=== PATIENT | female | born 1990 | race American Indian/Alaskan Native ===

== ENCOUNTER 2017-04-24 18:57 | Emergency (ER) | payer SELFPAY ==
[2017-04-24 20:03] LABS: Hematocrit 36.3 % (30.3-42.9); Mean Corpuscular HGB Conc 33 % (30-34); Mean Corpuscular Hemoglobin 27 pg (28-32); Mean Corpuscular Volume 80 fl (79-97); Platelet Count 180 K/mm3 (140-440); Red Blood Count 4.52 M/mm3 (3.65-5.03); Red Cell Distribution Width 14.7 % (13.2-15.2); White Blood Count 7.8 K/mm3 (4.5-11.0)
[2017-04-24 20:11] LABS: INR 1.07 (0.87-1.13)
[2017-04-24 20:18] LABS: Anion Gap 17 mmol/L; Blood Urea Nitrogen 12 mg/dL (7-17); Calcium 9.2 mg/dL (8.4-10.2); Carbon Dioxide 27 mmol/L (22-30); Chloride 96.4 mmol/L (98-107); Glucose 132 mg/dL (65-100); Potassium 3.5 mmol/L (3.6-5.0); Sodium 137 mmol/L (137-145)
--- NOTE | 2017-04-24 20:30 | Cat Scan Report ---
FINAL REPORT EXAM: CT HEAD/BRAIN WO CON HISTORY: dizziness and fainting TECHNIQUE: Noncontrast serial axial images from skull base to vertex. PRIORS: None. FINDINGS: There is no mass effect or midline shift. There are no abnormal intra or extra-axial fluid collections. Cortical sulci and lateral ventricles are within normal limits for size and configuration. Basilar cisterns are patent. No acute intracranial hemorrhage is identified. Visualized paranasal sinuses and mastoid air cells are well aerated. No acute osseous abnormality is identified. IMPRESSION: 1. No abnormal mass or acute intracranial hemorrhage is identified.
[2017-04-24] MEDS ORDERED: MORPHINE IV ONE (21:25)
[2017-04-24] MEDS ORDERED: NACL 0.9% 1000 ML 1,000 ML IV ONE (21:25)
--- NOTE | 2017-04-24 21:28 | Emergency Department Report ---
HPI - General Chief Complaint: Headache Time Seen by Provider: 04/24/17 21:18 - HPI HPI: This is a 26-year-old -[place] female presents to the emergency department, dropped off by a friend to be seen, with complaint of a 5 day history of a generalized headache and 3 episodes of passing out over this time including once today. She denies any vision change, slurred speech or any other neurological deficits. She has been taking some Tylenol and Aleve for her headache without any relief. She denies any past medical history. She does not have a primary care physician. She denies any tobacco, illicit drug use or alcohol abuse. No recent travel or sick contacts at home. ED Past Medical Hx - Past Medical History Previous Medical History?: No Hx Hypertension: No Hx Congestive Heart Failure: No Hx Diabetes: No Hx Deep Vein Thrombosis: No Hx Renal Disease: No Hx Sickle Cell Disease: No Hx Seizures: No Hx Asthma: No Hx COPD: No Hx HIV: No - Surgical History Past Surgical History?: No - Social History Smoking Status: Never Smoker - Medications Home Medications: Home Medications Medication Instructions Recorded Confirmed Last Taken Type Nitrofurantoin [place]/M-Cryst 100 mg PO Q12HR #14 capsule 04/24/17 Unknown Rx [Macrobid CAP] traMADol [Ultram 50 MG tab] 50 mg PO Q6HR PRN #6 tablet 04/25/17 Unknown Rx ED Review of Systems ROS: Stated complaint: PASSED OUT X3 IN 4 DAYS, HEADACHE Other details as noted in HPI Comment: All other systems reviewed and negative Constitutional: denies: chills, fever Eyes: denies: eye pain, eye discharge, vision change ENT: denies: ear pain, throat pain Respiratory: denies: cough, shortness of breath, wheezing Cardiovascular: syncope. denies: chest pain, palpitations Gastrointestinal: denies: abdominal pain, nausea, diarrhea Genitourinary: denies: urgency, dysuria, discharge Musculoskeletal: denies: back pain, joint swelling, arthralgia Skin: denies: rash, lesions Neurological: headache. denies: numbness Physical Exam - Physical Exam Vital Signs: Vital Signs 04/24/17 04/24/17 19:25 21:08 Temperature 98.6 F Pulse Rate 100 H 92 H Respiratory 20 16 Rate Blood Pressure 96/68 Blood Pressure 109/71 [Right] O2 Sat by Pulse 99 100 Oximetry Physical Exam: GENERAL: The patient is well-developed well-nourished. HENT: Normocephalic. Atraumatic. Patient has moist mucous membranes. EYES: Extraocular motions are intact. Pupils equal reactive to light bilaterally. No nystagmus. NECK: Supple. Trachea is midline. CHEST/LUNGS: Clear to auscultation. There is no respiratory distress noted. HEART/CARDIOVASCULAR: Regular. There is no tachycardia. There is no gallop rub or murmur. ABDOMEN: Abdomen is soft, nontender. Patient has normal bowel sounds. There is no abdominal distention. SKIN: Skin is warm and dry. NEURO: The patient is awake, alert, and oriented. The patient is cooperative. The patient has no focal neurologic deficits. The patient has normal speech and gait. Cranial nerves II through XII grossly intact. MUSCULOSKELETAL: There is no tenderness or deformity. There is no limitation range of motion. There is no evidence of acute injury. ED Course Vital Signs 04/24/17 04/24/17 19:25 21:08 Temperature 98.6 F Pulse Rate 100 H 92 H Respiratory 20 16 Rate Blood Pressure 96/68 Blood Pressure 109/71 [Right] O2 Sat by Pulse 99 100 Oximetry ED Medical Decision Making - Lab Data Result diagrams: 04/24/17 19:48 04/24/17 19:52 - EKG Data -: EKG Interpreted by [facility] EKG shows normal: sinus rhythm, axis, intervals, QRS complexes, ST-T waves Rate: normal - EKG Data When compared to previous EKG there are: previous EKG unavailable Interpretation: normal EKG - Radiology Data Radiology results: report reviewed CT of the head does not show any acute intracranial process including no ischemia, shift, mass, bleeding or skull fracture. - Medical Decision Making 26-year-old female presents with a few days of a generalized headache and a few episodes of syncope. She does not have any focal, motor or sensory deficits in her cranial nerves are intact. Physical exam is unremarkable. EKG does not show any signs of ST elevation HI, ischemia or dysrhythmia. Labs are mostly unremarkable except for a urinary tract infection. She was given a dose of Rocephin. She was given some IV fluid resuscitation and a dose of pain medication. Upon reevaluation she says she is feeling greatly improved and asking for discharge home. She will be discharged home with a course of antibiotics for a urinary tract infection, referral for primary care and a referral for neurology. She has been encouraged to return to the emergency department with any further episodes of syncope or any return of her headache or any acute distress. - Differential Diagnosis tension headache, migraine, brain bleed, orthostatic hypotension, vasovagal Critical Care Time: No Critical care attestation.: If time is entered above; I have spent that time in minutes in the direct care of this critically ill patient, excluding procedure time. ED Disposition Clinical Impression: Headache Qualifiers: Headache type: unspecified Headache chronicity pattern: unspecified pattern Intractability: not intractable Qualified Code(s): R51 - Headache Syncope Qualifiers: Syncope type: unspecified Qualified Code(s): R55 - Syncope and collapse UTI (urinary tract infection) Qualifiers: Urinary tract infection type: acute cystitis Hematuria presence: without hematuria Qualified Code(s): N30.00 - Acute cystitis without hematuria Disposition: TO HOME OR SELFCARE Is pt being admited?: No Condition: Stable Instructions: Urinary Tract Infection in Women (ED), Syncope (ED), Acute Headache (ED) Additional Instructions: Please follow up with a primary care physician in the next few days. I have given you a referral for a local neurologist, Dr. Alejandra, in case she would like to follow up regarding your headaches. Return to the emergency Department with any worsening of your symptoms or any acute distress. Prescriptions: Nitrofurantoin Day/M-Cryst [Macrobid CAP] 100 mg PO Q12HR #14 capsule traMADol [Ultram 50 MG tab] 50 mg PO Q6HR PRN #6 tablet PRN Reason: Pain Referrals: PRIMARY MD LAWRENCE [Primary Care Provider] - 3-5 Days BRIANNE ALEJANDRA MD [Staff Physician] - 3-5 Days RACQUEL MEHTA MD [Staff Physician] - 3-5 Days [facility] [Outside] - 3-5 Days Forms: Work/School Release Form(ED) Time of Disposition: 23:53
[2017-04-24 21:51] LABS: Bacteria,Urine 2+ /HPF (Negative); Bilirubin,Urine NEG (Negative); Blood,Urine MOD (Negative); Ketones,Urine 20 mg/dL (Negative); Leukocyte Esterase,Urine LG (Negative); Mucus,Urine 1+ /HPF; Nitrite,Urine POS (Negative); Urobilinogen,Urine < 2.0 mg/dL (<2.0); WBC,Urine > 182.0 /HPF (0.0-6.0)
[2017-04-24] MEDS ORDERED: ROCEPHIN/NS 1 GM/50 ML 1 GM/50 ML BAG IV ONE (22:23)
[2017-04-24] MEDS ORDERED: TORADOL IV ONE (22:39)
[2017-04-24 23:55] VITALS: BP 101/60
== END 2017-04-25 00:06 | disposition home or self-care (01) ==
LOC: ED 18:57
DX: R52 Pain, unspecified (principal); N30.00 Acute cystitis without hematuria; Z91.013 Allergy to seafood
CPT/HCPCS: 36415; 70450; 80048; 81001; 81025; 84443; 84703; 85027; 85610; 85730; 93005; 93010; 96361; 96365; 96375; 99285; G0480; J0696; J1885; J2270; J7030; 80320

== ENCOUNTER 2018-01-07 22:43 | Emergency (ER) | payer SELFPAY ==
[2018-01-07 23:25] VITALS: BP 106/64
[2018-01-08 00:05] LABS: Basophils # (Auto) 0.1 K/mm3 (0.0-0.1); Basophils % (Auto) 0.6 % (0.0-1.8); Eosinophils # (Auto) 0.5 K/mm3 (0.0-0.4); Hematocrit 34.6 % (30.3-42.9); Hemoglobin 11.3 gm/dl (10.1-14.3); Lymphocytes # (Auto) 2.1 K/mm3 (1.2-5.4); Lymphocytes % (Auto) 22.9 % (13.4-35.0); Mean Corpuscular HGB Conc 33 % (30-34); Mean Corpuscular Hemoglobin 27 pg (28-32); Mean Corpuscular Volume 83 fl (79-97); Monocytes # (Auto) 0.6 K/mm3 (0.0-0.8); Monocytes % (Auto) 6.9 % (0.0-7.3); Platelet Count 174 K/mm3 (140-440); Red Blood Count 4.19 M/mm3 (3.65-5.03); Red Cell Distribution Width 14.6 % (13.2-15.2)
[2018-01-08 00:12] LABS: Alanine Aminotransferase 6 units/L (7-56); Albumin 4.3 g/dL (3.9-5); BUN/Creatinine Ratio 17; Blood Urea Nitrogen 10 mg/dL (7-17); Calcium 9.1 mg/dL (8.4-10.2); Hemolysis Index 6
[2018-01-08 08:09] LABS: Bilirubin,Urine NEG (Negative); Blood,Urine LG (Negative); Mucus,Urine 3+ /HPF; Urobilinogen,Urine < 2.0 mg/dL (<2.0)
[2018-01-08 08:13] LABS: Color,Urine Brown (Yellow); RBC,Urine > 182.0 /HPF (0.0-6.0)
== END 2018-01-07 23:27 | disposition left against medical advice (07) ==
LOC: ED 22:43
DX: N93.9 Abnormal uterine and vaginal bleeding, unspecified (principal); Z53.21 Procedure and treatment not carried out due to patient leaving prior to being seen by health care provider
CPT/HCPCS: 36415; 80053; 81001; 84702; 85025; 86850; 86900; 86901

== ENCOUNTER 2018-01-08 21:42 | Emergency (ER) | payer SELFPAY ==
[2018-01-08 22:38] LABS: Bilirubin,Urine NEG (Negative); Blood,Urine LG (Negative); Color,Urine Yellow (Yellow); Mucus,Urine 3+ /HPF
[2018-01-08 23:08] LABS: Basophils % (Auto) 0.6 % (0.0-1.8); Eosinophils # (Auto) 0.8 K/mm3 (0.0-0.4); Eosinophils % (Auto) 9.2 % (0.0-4.3); Hematocrit 34.8 % (30.3-42.9); Hemoglobin 11.2 gm/dl (10.1-14.3); Lymphocytes # (Auto) 2.1 K/mm3 (1.2-5.4); Lymphocytes % (Auto) 24.6 % (13.4-35.0); Mean Corpuscular HGB Conc 32 % (30-34); Mean Corpuscular Hemoglobin 27 pg (28-32); Mean Corpuscular Volume 83 fl (79-97); Monocytes # (Auto) 0.6 K/mm3 (0.0-0.8); Monocytes % (Auto) 6.8 % (0.0-7.3); Platelet Count 170 K/mm3 (140-440); Red Cell Distribution Width 14.8 % (13.2-15.2)
--- NOTE | 2018-01-09 01:38 | Ultrasound Report ---
FINAL REPORT EXAM: US OB < = 14 WEEKS FETUS HISTORY: abd pain, pregn TECHNIQUE: Transabdominal imaging was obtained of the pelvis including Doppler interrogation of the adnexa. FINDINGS: The uterus is anteverted measuring 9.8 cm x 6.7 cm x 7.3 cm. There is an intrauterine gestational sac with an irregular contour with a mean sac diameter of 4.5 cm. This corresponds to a 10 week 4 day . Within the sac there is no evidence of yolk sac or embryo. A subchorionic hemorrhage is not seen. Free fluid is not seen. The ovaries are appropriate size contour and echotexture. The right ovary measures 3 cm x 2.4 cm x 2 cm. The left ovary measures 2.9 cm x 1.1 cm x 2.4 cm. IMPRESSION: Intrauterine gestational sac corresponding to a 10 week 4 day . No evidence of an embryo or yolk sac. Diagnostic considerations would include a blighted ovum versus an incomplete . Normal-appearing ovaries. No evidence of free fluid.
--- NOTE | 2018-01-09 01:40 | Ultrasound Report ---
FINAL REPORT EXAM: US OB TRANSVAGINAL HISTORY: abd pain, pregn TECHNIQUE: Transvaginal imaging was obtained the pelvis including Doppler interrogation of the uterus and adnexa. FINDINGS: The uterus measures 9.8 cm x 6.7 cm x 7.3 cm. Within the uterus is a gestational sac with irregular contour with mean sac diameter of 4.5 centimeters. This corresponds to a 10 week 4 day . There is no evidence of yolk sac or embryo within the gestational sac. There is no evidence of subchronic hemorrhage. Free fluid is not seen. The ovaries are normal size, contour, blood flow and echotexture. The right ovary measures 3 cm x 2.4 cm x 2 cm. The left ovary measures 2.9 cm x 1.1 cm x 2.4 cm. IMPRESSION: Intrauterine gestational sac which corresponds to a 10 week 4 day . No evidence of an embryo or yolk sac. Diagnostic consideration would include incomplete versus blighted ovum. Normal-appearing ovaries. No evidence of free fluid.
[2018-01-09] MEDS ORDERED: TYLENOL PO ONE (01:54)
[2018-01-09 02:02] VITALS: BP 99/50
--- NOTE | 2018-01-09 02:16 | Emergency Department Report ---
HPI - General Chief Complaint: Vaginal Bleeding Time Seen by Provider: 01/09/18 00:07 - HPI HPI: The patient is a 27yo female, unknown EGA, who presents for evaluation of abdominal pain. The patient reports lower abdominal pain for the past 2 days, crampy in quality, moderate in severity, worse with position changes, and associated with vaginal bleeding. The patient denies fever, chills, night sweats , diarrhea, blood in the stool, dark tarry stool, dysuria, hematuria, flank pain , genital discharge, inability to pass flatus. ED Past Medical Hx - Past Medical History Hx Hypertension: No Hx Congestive Heart Failure: No Hx Diabetes: No Hx Deep Vein Thrombosis: No Hx Renal Disease: No Hx Sickle Cell Disease: No Hx Seizures: No Hx Asthma: No Hx COPD: No Hx HIV: No - Surgical History Past Surgical History?: No - Social History Smoking Status: Never Smoker Substance Use Type: None - Medications Home Medications: Home Medications Medication Instructions Recorded Confirmed Last Taken Type Nitrofurantoin [place]/M-Cryst 100 mg PO Q12HR #14 capsule 04/24/17 Unknown Rx [Macrobid CAP] traMADol [Ultram 50 MG tab] 50 mg PO Q6HR PRN #6 tablet 04/25/17 Unknown Rx Acetaminophen [Tylenol] 1,000 mg PO Q6HR #20 tablet 01/09/18 Unknown Rx Ondansetron [Zofran TAB] 4 mg PO Q8HR PRN #15 tablet 01/09/18 Unknown Rx Pnv No.95/Ferrous Fum/Folic AC 1 each PO QDAY #31 tablet 01/09/18 Unknown Rx [ Vitamin Tablet] ED Review of Systems ROS: Stated complaint: ABD PAIN Other details as noted in HPI Constitutional: denies: fever ENT: denies: throat or neck pain Respiratory: denies: cough, shortness of breath Cardiovascular: denies: chest pain Endocrine: denies unexplained weight loss or gain Gastrointestinal: reports abdominal pain, nausea Genitourinary: reports vaginal bleeding denies: dysuria Musculoskeletal: denies: leg swelling Skin: denies: rash Neurological: denies: headache Hematological/Lymphatic: denies: easy bleeding or easy bruising Psych: denies sadness or hopelessness Physical Exam - Physical Exam Vital Signs: Vital Signs 01/08/18 01/09/18 21:50 02:02 Temperature 98.1 F Pulse Rate 68 52 L Respiratory 16 Rate Blood Pressure 101/65 Blood Pressure 99/50 [Right] O2 Sat by Pulse 99 Oximetry Physical Exam: General: well-nourished, well-developed, no acute distress Head: Normocephalic, atraumatic Eyes: normal sclera ENT: Mucous membranes are pink and moist Neck: trachea midline, neck supple, No neck stiffness, no cervical adenopathy Respiratory: Breath sounds equal bilaterally, no wheezing, rales, or rhonchi Cardio: S1 and S2 present, no murmurs, rubs, gallops, capillary refill is brisk Abdomen: Normoactive bowel sounds, soft abdomen, she will be referred tenderness to palpation present, no rigidity, no guarding or rebound tenderness Chest WALL/Back: No tenderness to palpation of the chest wall, no CVA tenderness with percussion Musc: No pitting edema Skin: No rash Neuro: no facial drooping, normal speech Psych: Normal affect ED Course Vital Signs 01/08/18 01/09/18 21:50 02:02 Temperature 98.1 F Pulse Rate 68 52 L Respiratory 16 Rate Blood Pressure 101/65 Blood Pressure 99/50 [Right] O2 Sat by Pulse 99 Oximetry ED Medical Decision Making - Lab Data Result diagrams: 01/08/18 22:35 - Medical Decision Making The patient was seen and examined by myself. The patient is placed on a nurse monitoring and continuous pulse ox. On initial evaluation, the patient was found to be in no distress. Evaluation orders were placed. The patient is given a tylneol for pain. Lab results revealed positive beta hCG level. Heart sound the pelvis reveals a gestational sac but is negative for a yolk sac or fetus. The patient is informed of potential threatened miscarriage versus incomplete miscarriage, and need to obtain repeat hCG in 48 hours. The patient was reevaluated and reported that their symptoms were markedly improved. The patient is stable for discharge with outpatient follow-up. The patient is given follow-up and return instructions. The patient expressed understanding and agreed with the plan. The patient is discharged in stable condition. Critical care attestation.: If time is entered above; I have spent that time in minutes in the direct care of this critically ill patient, excluding procedure time. ED Disposition Clinical Impression: Threatened in first trimester, Abdominal pain, acute, periumbilical Disposition: DC-01 TO HOME OR SELFCARE Is pt being admited?: No Does the pt Need Aspirin: No Condition: Stable Instructions: Threatened Miscarriage (ED), Spontaneous Miscarriage (ED), Abdominal Pain in (ED) Additional Instructions: Your ultrasound was unable to identify a normal intrauterine , and also was not able to rule out an ectopic . Make sure to follow-up with your [facility] within the next 48 hours for repeat B-HCG testing and trending. Your beta hCG level should double in 2 days if your is progressing as normal. You could have an ectopic and you must immediately present to an emergency department should you develop worsening of your symptoms or severe pain, vaginal bleeding, lightheadedness, passing out, confusion, or fever. Referrals: [facility] [Provider Group] - 3-5 Days Time of Disposition: 02:14
== END 2018-01-09 02:41 | disposition home or self-care (01) ==
LOC: ED 21:42
DX: O20.0 Threatened abortion (principal); Z3A.01 Less than 8 weeks gestation of pregnancy; Z91.013 Allergy to seafood
CPT/HCPCS: 36415; 76801; 76817; 81001; 84702; 85025; 86850; 86900; 86901